=== PATIENT | female | born 1970 | race Caucasian/White ===

== ENCOUNTER 2018-03-06 21:07 | Inpatient (IN) | payer OTHER ==
[~2018-03-06] VITALS: Ht 157.5 cm; Wt 101.3 kg
[2018-03-06 21:33] LABS: HEMATOCRIT 41.2 % (36.0-46.0); HEMOGLOBIN 14.7 G/DL (11.9-15.5); MCH 30.2 PG (29.0-34.0); MCHC 35.7 G/DL (30.0-36.0); MCV 84.6 FL (83-99); PLATELET COUNT 330 K/uL (156-360); RBC DIS.WIDTH-CV 12.4 % (11.8-14.6); RBC DIS.WIDTH-SD 38.3 % (39-53); RED BLOOD COUNT 4.87 M/uL (3.80-5.20); WHITE BLOOD COUNT 8.6 K/uL (4.1-10.2)
[2018-03-06 21:44] LABS: ALBUMIN 3.6 g/dL (3.2-4.8)
[2018-03-06 21:45] LABS: CHLORIDE 109 mEq/L (99-109); POTASSIUM 3.4 mEq/L (3.7-5.4); SODIUM 137 mEq/L (136-147)
[2018-03-06 21:47] LABS: GLUCOSE 141 mg/dL (70-99); TOTAL PROTEIN 5.7 g/dL (6.4-8.3)
[2018-03-06 21:49] LABS: TOTAL BILIRUBIN 0.4 mg/dL (0.0-1.0)
[2018-03-06 21:50] LABS: ALKALINE PHOSPHATASE 99 IU/L (3-129)
[2018-03-06 21:51] LABS: CREATININE 0.7 mg/dL (0.6-1.3); GFR ESTIMATE (CALCULATED) > 59 mL/min/
[2018-03-06 21:52] LABS: AST (GOT) 108 IU/L (2-34); UREA NITROGEN (BUN) 9 mg/dL (9-23)
[2018-03-06 21:54] LABS: ALT (GPT) 114 IU/L (3-49)
[2018-03-07] VITALS (17 sets, daily range): BP systolic 89–120; BP diastolic 46–81
[2018-03-07] MEDS ORDERED: OXYBUTYNIN CHLO10 MG PO (00:12)
[2018-03-07 03:12] LABS: BASOPHIL (%) 0.2 % (0-1); EOSINOPHIL (%) 0 % (0-5); HEMATOCRIT 38.8 % (36.0-46.0); HEMOGLOBIN 13.5 G/DL (11.9-15.5); IMMATURE GRANULOCYTE (%) 0.5 % (0.0-0.7); LYMPHOCYTE (%) 6.1 % (15-42); LYMPHOCYTE COUNT 0.9 K/uL (1.0-2.8); MCH 30.4 PG (29.0-34.0); MCHC 34.8 G/DL (30.0-36.0); MCV 87.4 FL (83-99); MONOCYTE (%) 2.9 % (3-12); MONOCYTE COUNT 0.4 K/uL (0-0.8); NEUTROPHIL (%) 90.3 % (45-76); NEUTROPHIL COUNT 13.5 K/uL (1.8-6.4); PLATELET COUNT 288 K/uL (156-360); RBC DIS.WIDTH-CV 12.5 % (11.8-14.6); RBC DIS.WIDTH-SD 40.1 % (39-53); RED BLOOD COUNT 4.44 M/uL (3.80-5.20)
[2018-03-07 03:30] LABS: ALBUMIN 3.3 g/dL (3.2-4.8); CHLORIDE 109 mEq/L (99-109); POTASSIUM 3.9 mEq/L (3.7-5.4)
[2018-03-07 03:31] LABS: SODIUM 138 mEq/L (136-147)
[2018-03-07 03:33] LABS: GLUCOSE 195 mg/dL (70-99)
[2018-03-07 03:36] LABS: ALKALINE PHOSPHATASE 76 IU/L (3-129); CREATININE 0.7 mg/dL (0.6-1.3); GFR ESTIMATE (CALCULATED) > 59 mL/min/
[2018-03-07 03:38] LABS: AST (GOT) 90 IU/L (2-34); TOTAL BILIRUBIN 0.3 mg/dL (0.0-1.0); TOTAL PROTEIN 4.8 g/dL (6.4-8.3); UREA NITROGEN (BUN) 7 mg/dL (9-23)
[2018-03-07 03:39] LABS: ALT (GPT) 112 IU/L (3-49)
[2018-03-07 08:36] LABS: HEMATOCRIT 38.7 % (36.0-46.0); HEMOGLOBIN 13.1 G/DL (11.9-15.5); MCV 88.2 FL (83-99)
[2018-03-07 16:10] LABS: HEMATOCRIT 38.2 % (36.0-46.0); HEMOGLOBIN 12.8 G/DL (11.9-15.5); MCV 87.8 FL (83-99)
[2018-03-08] VITALS (11 sets, daily range): BP systolic 105–130; BP diastolic 59–73
[2018-03-08 00:33] LABS: HEMATOCRIT 36.9 % (36.0-46.0); HEMOGLOBIN 12.6 G/DL (11.9-15.5); MCV 88.3 FL (83-99)
[2018-03-08 09:05] LABS: HEMATOCRIT 37.2 % (36.0-46.0); HEMOGLOBIN 12.4 G/DL (11.9-15.5); MCV 89.4 FL (83-99)
[2018-03-08 09:28] LABS: ALBUMIN 3.1 G/DL (3.2-4.8); ALKALINE PHOSPHATASE 46 IU/L (3-129); ALT (GPT) 67 IU/L (3-49); AST (GOT) 32 IU/L (2-34); CHLORIDE 109 MEQ/L (99-109); CREATININE 0.5 MG/DL (0.6-1.3); GFR ESTIMATE (CALCULATED) > 59 mL/min/; GLUCOSE 130 mg/dL (70-99); POTASSIUM 4.1 MEQ/L (3.7-5.4); SODIUM 137 MEQ/L (136-147); TOTAL BILIRUBIN 0.4 MG/DL (0.0-1.0); TOTAL PROTEIN 4.7 G/DL (6.4-8.3); UREA NITROGEN (BUN) 3 mg/dL (9-23)
[2018-03-09 04:03] VITALS: BP 97/51
[2018-03-09 06:20] LABS: HEMATOCRIT 39.1 % (36.0-46.0); HEMOGLOBIN 13.1 G/DL (11.9-15.5); MCH 29.5 PG (29.0-34.0); MCHC 33.5 G/DL (30.0-36.0); MCV 88.1 FL (83-99); PLATELET COUNT 233 K/uL (156-360); RBC DIS.WIDTH-CV 12.6 % (11.8-14.6); RBC DIS.WIDTH-SD 40.8 % (39-53); RED BLOOD COUNT 4.44 M/uL (3.80-5.20)
[2018-03-09 08:00] VITALS: BP 108/52
== END 2018-03-09 17:38 | disposition home or self-care (01) | DRG 964 ==
LOC: EME 21:07 → EDOF 23:57 → 3EAST 23:57 → ENRESERV 23:59 → ENRESERVTM 03-07 01:15 → ENRESERV 03-07 01:15 → ENRESERVDT 03-07 01:15 → 4WEST 03-07 01:54 → ENRESERV 03-08 15:06 → 3EAST 03-08 17:33
PROVIDERS: Emergency Medicine; Surgery
DX: S36.115A Moderate laceration of liver, initial encounter (principal); S37.812A Contusion of adrenal gland, initial encounter; S00.81XA Abrasion of other part of head, initial encounter; V18.4XXA Pedal cycle driver injured in noncollision transport accident in traffic accident, initial encounter; Y93.55 Activity, bike riding; R11.2 Nausea with vomiting, unspecified; T40.2X5A Adverse effect of other opioids, initial encounter; S06.0X0A Concussion without loss of consciousness, initial encounter; N32.81 Overactive bladder; E66.01 Morbid (severe) obesity due to excess calories; Z68.41 Body mass index [BMI] 40.0-44.9, adult; Z87.891 Personal history of nicotine dependence
CPT/HCPCS: 70450; 71045; 71260; 72125; 74177; 80053; 85014; 85018; 85025; 85027; 87641; 99281; 99285; C1753; J1170; J2270; J2405; J2550; J2765; J3010; J3480; J7030; J7120